=== PATIENT | male | born 1950 | race African-American/Black ===

== ENCOUNTER 2020-08-26 18:14 | Emergency (ER) | payer MEDICARE ==
[~2020-08-26] VITALS: Ht 188 cm; Wt 72.7 kg
[2020-08-26 18:17] VITALS: Ht 188 cm; Wt 72.7 kg
[2020-08-26 18:35] LABS: BASOPHILS 0.9 % (0-2); EOSINOPHILS 0.3 % (0-7); HEMATOCRIT 41.9 % (42.0-54.0); HEMOGLOBIN 13.7 g/dL (13.5-17.5); LYMPHOCYTES 30.9 % (15-50); MCH 28.7 pg (26.0-34.0); MCHC 32.6 g/dL (31.0-37.0); MEAN PLATELET VOLUME 8.3 fL (7.4-10.4); MONOCYTES 11.3 % (2-11); NEUTROPHILS 56.6 % (40-80); PLATELET COUNT 278 10x3/uL (130-400); RBC 4.76 10x6/uL (4.20-6.10); RDW 14.7 % (11.5-14.5); WBC 6.3 10x3/uL (4.8-10.8)
[2020-08-26 18:46] LABS: CALC OSMOLALITY 287 mosm/kg (275-300); CARBON DIOXIDE 24.9 mmol/L (21.0-32.0); CHLORIDE - SERUM 103 mmol/L (98-107); GLUCOSE 158 mg/dL (74-106); POTASSIUM - SERUM 4.1 mmol/L (3.5-5.1); SODIUM 140 mmol/L (136-145); UREA NITROGEN 30 mg/dL (7-18); eGFR NON AFRICAN AMERICAN 35 mL/min (90-120)
[2020-08-26 18:50] LABS: APTT 26.3 SECONDS (22.8-39.4); INR 1.18 (0.85-1.17); PROTIME 13.9 SECONDS (11.6-15.0)
[2020-08-26 19:00] LABS: ALBUMIN 4.2 g/dL (3.4-5.0); ALKALINE PHOSPHATASE 100 U/L (30-120); ALT (SGPT) 16 U/L (10-68); BILIRUBIN - TOTAL 0.59 mg/dL (0.2-1.3); CREATINE KINASE 130 UL (21-232); MAGNESIUM - SERUM 2.1 mg/dL (1.8-2.4); PROTEIN - SERUM 8.3 g/dL (6.4-8.2)
[2020-08-26 19:07] LABS: TROPONIN-I < 0.017 ng/mL (0.000-0.060)
[2020-08-26 20:18] VITALS: BP 134/89
== END 2020-08-26 20:19 | disposition left against medical advice (07) ==
LOC: D.ER 18:14
PROVIDERS: Family Medicine
DX: I21.09 ST elevation (STEMI) myocardial infarction involving other coronary artery of anterior wall (principal); R11.2 Nausea with vomiting, unspecified; R55 Syncope and collapse; R61 Generalized hyperhidrosis